=== PATIENT | male | born 1980 | race Caucasian/White ===

== ENCOUNTER 2024-07-09 01:48 | Emergency (ER) | payer BC, SELFPAY | END 2024-07-09 02:10 | disposition home or self-care (01) | LOC: CSHERS 01:48 | DX: I10 Essential (primary) hypertension (principal); M10.9 Gout, unspecified; F17.210 Nicotine dependence, cigarettes, uncomplicated; E66.9 Obesity, unspecified | CPT/HCPCS: 99283 ==